=== PATIENT | female | born 1965 | race Two or more races ===

== ENCOUNTER 2019-01-15 19:09 | Emergency (ER) | payer MEDICAID, OTHER ==
[~2019-01-15] VITALS: Ht 165.1 cm; Wt 80.0 kg
[2019-01-15] MEDS ORDERED: ASPIRIN 325MG TABLET PO ONE (22:00)
[2019-01-15 22:38] LABS: BASOPHILS % 0.4 % (0.0-2.0); EOSINOPHILS % 0.6 % (0.0-5.0); HEMATOCRIT. 40.7 % (36.0-48.0); HEMOGLOBIN. 13.3 g/dL (12.0-16.0); LYMPHOCYTES % 9.1 % (20.0-50.0); MEAN CORPUSCULAR HEMOGLOBIN 27.2 pg (28.0-32.0); MEAN CORPUSCULAR VOLUME 83.4 fL (81.0-99.0); MEAN PLATELET VOLUME 8.6 fl (7.4-10.4); MONOCYTES % 5.6 % (2.0-8.0); NEUTROPHILS % 84.3 % (40.0-76.0); PLATELET 282 x1000/uL (130-400); RED BLOOD CELL COUNT 4.88 mill/uL (4.2-5.4); RED CELL DISTRIBUTION WIDTH 14.6 % (11.6-14.6)
[2019-01-15 22:41] LABS: CHLORIDE 105 mEq/L (98-107)
[2019-01-15] MEDS ORDERED: KETOROLAC 30MG/ML VIAL IV ONE (23:15)
[2019-01-16 04:55] VITALS: BP 118/63
== END 2019-01-16 05:06 | disposition short-term general hospital (02) ==
LOC: ER 19:09 → CANBEDREQ 01-16 07:04
DX: R07.89 Other chest pain (principal); E11.9 Type 2 diabetes mellitus without complications; F41.9 Anxiety disorder, unspecified; E78.00 Pure hypercholesterolemia, unspecified; I10 Essential (primary) hypertension
CPT/HCPCS: 36415; 71045; 80053; 82962; 83880; 84484; 85025; 87804; 93005; 96374; 99285; J1885; 99284; A4315